=== PATIENT | female | born 1970 | race Caucasian/White ===

== ENCOUNTER → 2018-07-22 | Outpatient (CLI) | payer OTHER ==
[~2018-07-22] MED LIST: ESTRADIOL PO; ESTRADIOL1 MG PO
--- NOTE | 2018-07-22 12:33 | Diagnostic Imaging Report ---
TECHNIQUE: Magnetic resonance imaging of the LEFT HAND was performed WITHOUT injected contrast. HISTORY: Pain COMPARISON: None. FINDINGS: Soft tissue mass located within the dorsal soft tissues of the index finger at the level of the proximal phalanx mid aspect to the base of the middle phalanx. This measures 1.6 cm in craniocaudal dimension and approximately 2 cm maximum axial dimension. The mass is isointense to muscle on T1 and mildly hyperintense to muscle on fluid sensitive sequence. The mass is associated with the extensor tendons finger. The central tendon appears to insert on the middle phalanx with the lateral slips forming a terminal tendon onto the distal phalanx. The flexor tendons are intact. The annular pulleys are intact. 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 Signed by: Dr. Ulices Amos M.D. on 07/22/2018 12:29 PM
== END ==
LOC: MRI 10:51
PROVIDERS: ATTEND Plastic Surgery
DX: R22.32 Localized swelling, mass and lump, left upper limb (principal)

== ENCOUNTER → 2018-09-16 | Day surgery (SDC) | payer OTHER ==
[~2018-09-16] MED LIST changes: +BUPIVACAINE HCL 0.5% INJ 30 ML VIAL INJ ONE; +CEFAZOLIN SOD 1 GM/D5W 50ML 50 ML IV ONE; +DEXAMETHASONE SOD PHOS INJ 4 MG/ML VIAL ONE; +FENTANYL CITRATE/PF 100MCG/2 ML INJ ONE; +KETOROLAC TROMETHAMINE 30 MG/ML VIAL ONE; +LIDOCAINE HCL 2% LOCAL INJ 5 ML SDV VIAL INJ ONE; +MIDAZOLAM HCL 2 MG/2 ML VIAL ONE; +MUPIROCIN 2% OINT 22 GM TUBE ONE; +ONDANSETRON HCL INJ 2 MG/ML VIAL ONE; +PROPOFOL IV EMULSION 10 MG/ML 20 ML VIAL ONE; +SEVOFLURANE INHAL SOLN 250 ML PEN BTL ONE
--- OUTSIDE RECORDS SUMMARY | 2018-09-16 06:10 | XMS REPORT ---
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 Allergies, Adverse Reactions, Alerts Allergy Name Allergy Type Status Severity Reaction(s) Onset Date Inactive Date Treating Clinician Comments No Known Allergies DA Active U 2015-08-30 00:00:00 Medications This patient has no known medications. Results Test Description Test Time Test Comments Text Results Atomic Results Result Comments MRI HAND LEFT WO 2018-07-22 12:26:00 [place] [address] Patient Name: JACQUE BEATTY MR #: [id number] : 1970 Age/Sex: 47/F Req #: [id number] Adm Physician: Ordered by: BRYANNA NUNEZ MD Report #: [id number] Location: MRI Room/Bed: Procedure: [id number] MRI/MRI HAND LEFT WO Exam Date: Exam Time: REPORT STATUS: Signed TECHNIQUE: Magnetic resonance imaging of the LEFT HAND was performed WITHOUT injected contrast. HISTORY: Pain COMPARISON: None. FINDINGS: Soft tissue mass located within the dorsal soft tissues of the index finger at the level of the proximal phalanx mid aspect to the base of the middle phalanx. This measures 1.6 cm in craniocaudal dimension and approximately 2 cm maximum axial dimension. The mass is isointense to muscle on T1 and mildly hyperintense to muscle on fluid sensitive sequence. The mass is associated with the extensor tendons finger. The central tendon appears to insert on the middle phalanx with the lateral slips forming a terminal tendon onto the distal phalanx. The flexor tendons are intact. The annular pulleys are intact. 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 Signed by: Dr. Nikhil Pritchard M.D. on 07/22/2018 12:29 PM Dictated By: NIKHIL PRITCHARD MD 28 Transcribed By: ROLLY on 07/22/181228 COPY TO: BRYANNA UNNEZ MD
--- OUTSIDE RECORDS SUMMARY | 2018-09-16 06:10 | XMS REPORT | Clinical Summary ---
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 in packet Active Lactobacillus rhamnosus Take 1 0 GG (CULTURELLE) 10 capsule by billion cell capsule mouth daily. Active cyanocobalamin (VITAMIN Take 500 mcg 0 B-12) 500 MCG tablet by mouth daily. Active gabapentin (NEURONTIN) Take 3 90 capsule 1 100 mg capsules (300 8 capsuleIndications: mg total) by Burning sensation mouth every evening. Active Problems No known active problems Encounters Care Team Description Date Type Specialty Kate Reyes MD 07/16/2018 Telephone Neurology Kate Reyes MD Lyme disease (Primary Dx) 07/09/2018 Orders Only Neurology Kate Reyes MD 07/07/2018 Telephone Neurology Kate Reyes MD 06/26/2018 Lab Lab Kate Reyes MD 06/26/2018 Lab Lab Kate Reyes MD Burning sensation (Primary Dx); Brain stem lesion 06/26/2018 Office Visit Neurology after 09/15/2017 Family History Medical History Relation Name Comments Diabetes Maternal Uncle Relation Name Status Comments Maternal Uncle Alive Social History Date Tobacco Use Types Packs/Day Years Used Quit: 1991 Former Smoker Cigarettes Smokeless Tobacco: Never Used Alcohol Use Drinks/Week oz/Week Comments Yes 1 Glasses of 0.6 occasionally once a month wine Sex Assigned at Date Recorded Not on file Industry Job Start Date Occupation Not on file Not on file Not on file Travel End Travel History Travel Start No recent travel history available. Last Filed Vital Signs Time Taken Vital Sign Reading 06/26/2018 1:10 PM CDT Blood Pressure 106/64 06/26/2018 1:10 PM CDT Pulse 65 - Temperature - - Respiratory Rate - - Oxygen Saturation - - Inhaled Oxygen - Concentration 07/10/2018 11:01 AM CDT Weight 52.2 kg (115 lb) 07/10/2018 11:01 AM CDT Height 147.3 cm (4' 10") 07/10/2018 11:01 AM CDT Body Mass Index 24.04 Plan of Treatment Health Maintenance Due Date Last Done Comments CERVICAL CANCER SCREENING 1991 INFLUENZA VACCINE 04/30/2018 Procedures Comments Procedure Name Priority Date/Time Associated Diagnosis MRI BRAIN W WO CONTRAST Routine 07/10/2018 Burning sensation 11:41 AM CDT Brain stem lesion PARANEOPLASTIC ANTIBODY, Routine 06/26/2018 WESTERN BLOT 1:54 PM CDT LYME, WESTERN BLOT, SERUM Routine 06/26/2018 1:54 PM CDT HEAVY METALS PANEL, BLOOD Routine 06/26/2018 Burning sensation 1:54 PM CDT Brain stem lesion MYELOPEROXIDASE ANTIBODY Routine 06/26/2018 Burning sensation (MPO) 1:54 PM CDT Brain stem lesion HEPATITIS ACUTE PANEL Routine 06/26/2018 Burning sensation 1:54 PM CDT Brain stem lesion PARANEOPLASTIC ANTIBODY Routine 06/26/2018 Burning sensation EVALUATION W/REFLEX TO 1:54 PM CDT Brain stem lesion TITER AND WESTERN BLOTC LYME DISEASE AB TOTAL AND Routine 06/26/2018 Burning sensation IGM W/RFL WESTERN BLOT ON 1:54 PM CDT Brain stem lesion POSITIVE SSA/SSB ANTIBODY Routine 06/26/2018 Burning sensation 1:54 PM CDT Brain stem lesion COPPER LEVEL, SERUM Routine 06/26/2018 Burning sensation 1:54 PM CDT Brain stem lesion after 09/15/2017 Results * MRI Brain W Wo Contrast (07/10/2018 11:41 AM CDT) Narrative Performed At EXAMINATION:MRI BRAIN W WO CONTRAST HM [facility] CLINICAL HISTORY:R20.8 Other disturbances of skin sensation, G93.9 Disorder of brainunspecified, headachesMSseizures COMPARISON: None FINDINGS: Pre and postcontrast MRI of the brain is interpreted. Diffusion imaging demonstrates no abnormal restricted diffusion. A couple of nonspecific foci of subcortical T2 FLAIR hyperintensity are noted within the cerebrum and likely reflect trace chronic small vessel ischemic change which can be seen with migraine headaches among other etiologies. Demyelination or an infectious/inflammatory process are felt to be less likely considerations. No extra-axial collection or mass effect is seen. No hemorrhage is identified. The major vascular flow-voids are preserved. No abnormal parenchymal or leptomeningeal enhancement is seen. IMPRESSION: No significant abnormality specifically demonstrated. A couple of small T2 FLAIR hyperintense foci in the cerebral white matter likely reflect minimal chronic small vessel ischemic change. [id number] Procedure Note Interface, Radiology Results Incoming - 07/10/2018 12:10 PM CDT EXAMINATION: MRI BRAIN W WO CONTRAST CLINICAL HISTORY: R20.8 Other disturbances of skin sensation, G93.9 Disorder of brain unspecified, headaches MS seizures COMPARISON: None FINDINGS: Pre and postcontrast MRI of the brain is interpreted. Diffusion imaging demonstrates no abnormal restricted diffusion. A couple of nonspecific foci of subcortical T2 FLAIR hyperintensity are noted within the cerebrum and likely reflect trace chronic small vessel ischemic change which can be seen with migraine headaches among other etiologies. Demyelination or an infectious/inflammatory process are felt to be less likely considerations. No extra-axial collection or mass effect is seen. No hemorrhage is identified. The major vascular flow-voids are preserved. No abnormal parenchymal or leptomeningeal enhancement is seen. IMPRESSION: No significant abnormality specifically demonstrated. A couple of small T2 FLAIR hyperintense foci in the cerebral white matter likely reflect minimal chronic small vessel ischemic change. [id number] Performing Organization Address City/State/Zipcode Phone Number [facility] [address] [place] [address] * Lyme, Western Blot, Serum (06/26/2018 1:54 PM CDT) Lyme 93 kD IgG Absent [facility] 03 Lyme 66 kD IgG Absent [facility] 03 Lyme 58 kD IgG Absent [facility] 03 Lyme 45 kD IgG Absent [facility] 03 Lyme 41 kD IgG Absent [facility] 03 Lyme 39 kD IgG Absent [facility] 03 Lyme 30 kD IgG Absent [facility] 03 Lyme 28 kD IgG Absent [facility] 03 Lyme 23 kD IgG Absent [facility] 03 Lyme 18 kD IgG Absent [facility] 03 Lyme IgG WB interp. Negative [facility] 03 Comment: Positive: 5 of the following Borrelia-specific bands: 18,23,28,30,39,41,45,58, 66, and 93. Negative: No bands or banding patterns which do not meet positive criteria. Lyme 41 kD IgM Absent [facility] 03 Lyme 39 kD IgM Absent [facility] 03 Lyme 23 kD IgM Absent [facility] 03 Lyme IgM WB interp. Negative [facility] 03 Comment: Note: An equivocal or positive EIA result followed by a negative Western Blot result is considered NEGATIVE. An equivocal or positive EIA result followed by a positive Western Blot is considered POSITIVE by the CDC. Positive: 2 of the following bands: 23,39 or 41 Negative: No bands or banding patterns which do not meet positive criteria. Criteria for positivity are those recommended by CDC/ASTPHLD. p23=Osp C, p25=hgswsmxol Note: Sera from individuals with the following may cross react in the Lyme Western Blot assays: other spirochetal diseases (periodontal disease, leptospirosis, relapsing fever, yaws, and pinta); connective autoimmune (Rheumatoid Arthritis and Systemic Lupus Erythematosus and also individuals with Antinuclear Antibody); other infections ([place] Spotted Fever; Trish-Calixto Virus, and Cytomegalovirus). Narrative Performed At Performed at:[facility] [address] [place], [id number] Theoretical Physicist: Tano Geller MD, Phone:[phone] Performing Organization Address City/State/Zipcode Phone Number [facility] 03 * Paraneoplastic antibody, western blot (06/26/2018 1:54 PM CDT) ANNA1 (Hu) Ab, WB <11 <11 SI [facility] ANNA2 (Ri) Ab, WB <11 <11 SI [facility] PCA1 (Yo) Ab, WB <11 <11 SI [facility] CRMP5/CV2 Ab, WB <11 <11 SI [facility] Amphiphysin Ab, WB <11 <11 SI [facility] GAD65 Ab, WB <11 <11 SI [facility] Comment: [facility] This test was developed and [facility] its analytical performance characteristics have been determined by [facility]. It has not been cleared or approved by FDA. This assay has been validated pursuant to the CLIA regulations and is used for clinical purposes. Resulting Agency Comment Performing Organization Information: Site ID: [id number] Name: [facility], Address: [address] [place] [id number] Director: Sushila Ojeda MD,PhD,JACKIE Performing Organization Address City/[facility] Phone Number [facility]ORENC[facility] LEON/BREANNA [address] [place] [address], [place] [phone] [facility] [id number] * Lyme disease ab total and igm w/rfl western blot on positive (06/26/2018 1:54 PM CDT) Lyme Ab <0.91 0.00 - 0.90 ISR [facility] 02 Comment: Negative <0.91 Equivocal0.91 - 1.09 Positive >1.09 Lyme Disease Ab, Quant, 1.31 (H) 0.00 - 0.79 index [facility] 02 IgM Comment: Negative <0.80 Equivocal0.80 - 1.19 Positive >1.19 IgM levels may peak at 3-6 weeks post infection, then gradually decline. Narrative Performed At Performed at:02 [facility] [address] [facility] [address], [place], [id number] Theoretical Physicist: STACY Rose MD, Phone:[phone] Performing Organization Address [facility] Phone Number [facility] 02 * Heavy Metals Panel, Blood (06/26/2018 1:54 PM CDT) Arsenic 3 <23 mcg/L [facility] Comment: [facility] PEACE Whole Blood Arsenic Level> 100 mcg/L is indicative of acute/chronic exposure. Urine is usually the best specimen for the analysis of arsenic in body fluids. Blood levels tend to be low even when urine concentrations are high. Mercury, blood 4 <11 mcg/L [facility] PEACE Lead, blood <1 <5 mcg/dL [facility] Comment: [facility] PEACE Lead: to 6 years: < 5mcg/dL > 6 years: < 5mcg/dL Blood lead levels in the range of 5-9 mcg/dL have been associated with adverse health effects in children aged 6 years and younger. Patient management varies by age and CDC Blood Lead Level range. Refer to the CDC website regarding Lead Publication/ Case Management for recommended interventions. Lead(B) collection sample [facility] [employer] [facility] Specimen Blood Resulting Agency Comment Performing Organization Information: Site ID: [id number] Name: [facility] Address: [address] [place] [address] Director: Mack Garcia M.D., Ph.D Performing Organization Address City/State/Zipcode Phone Number [facility] [address] [place] [address] [place] * Paraneoplastic Antibody Evaluation w/Reflex to Titer and Western Blot,Basic (06/26/2018 1:54 PM CDT) Tissue IFA observation(s) SEE NOTE [facility] Comment: [facility] Fluorescence observed on [facility] monkey cerebellum substrate. A known pattern associated with specific analytes in this panel was not observed. Testing suggests presence of autoantibodies not included in this panel. Staining of HEp2 cells suggests nuclear non-neuronal specific antibodies are present. Consider testing for myelin antibody if clinically indicated. Anti-neuronal nuclear Ab, NEGATIVE NEGATIVE [facility] type 1 [facility] S[facility] Anti-neuronal nuclear Ab, NEGATIVE NEGATIVE [facility] type 2 [facility] Anti-neuronal nuclear Ab, NEGATIVE NEGATIVE [facility] type 3 [facility] PCA1 (Yo) Ab, IFA NEGATIVE NEGATIVE [facility] PCA2 Ab, IFA NEGATIVE NEGATIVE [facility] SJ SQUEAK [employer]AK [employer]PAIRER Tr (DNER) Ab, IFA NEGATIVE NEGATIVE [facility] AGNA/SOX1 Ab, IFA NEGATIVE NEGATIVE [facility] Amphiphysin Ab NEGATIVE NEGATIVE [facility] CRMP5/CV2 Ab, IFA NEGATIVE NEGATIVE [facility] Comment: [facility] If specific neuronal [facility] autoantibodies were not detected, it does not exclude an idiopathic or paraneoplastic autoimmune neurological disease. If clinical concerns remain, consider testing for individual autoantibodies or with other autoimmune neurological disease panels offered by [facility]. For further information refer to the [employer] for [employer] autoimmune neurology testing website (https://www.[employer]. com/testcenter/testguide.actio n?dc=CF Paraneoplastic Syndromes). This test was developed and its analytical performance characteristics have been determined by [facility]. It has not been cleared or approved by FDA. This assay has been validated pursuant to the CLIA regulations and is used for clinical purposes. Striated muscle Ab, IgG NEGATIVE NEGATIVE [facility] screen Comment: [employer] This test was developed and [facility] its analytical performance characteristics have been determined by [facility] [employer] [facility]. It has not been cleared or approved by FDA. This assay has been validated pursuant to the CLIA regulations and is used for clinical purposes. Voltage-gated calcium <30 <30 pmol/L [facility] channel (VGCC) Ab DIAGNOSTICS/Eloquii [facility] Voltage-gated potassium <80 <80 pmol/L [facility] channel (VGKC) Ab Comment: [employer] This test was developed and [facility] its analytical performance characteristics have been determined by [employer] [facility]. It has not been cleared or approved by FDA. This assay has been validated pursuant to the CLIA regulations and is used for clinical purposes. Acetylcholine receptor <53 <53 pmol/L [facility] ganglionic (alpha 3) Ab Comment: [employer] This test was developed and [facility] its analytical performance characteristics have been determined by [employer] [facility]. It has not been cleared or approved by FDA. This assay has been validated pursuant to the CLIA regulations and is used for clinical purposes. Voltage gated calcium <54 <54 pmol/L [facility] channel (VGCC) type N Ab Comment: [employer] This test was developed and [facility] its analytical performance characteristics have been determined by [employer] [facility]. It has not been cleared or approved by FDA. This assay has been validated pursuant to the CLIA regulations and is used for clinical purposes. Acetylcholine receptor <0.30 nmol/L [facility] binding Ab Comment: [employer] Reference Ranges for [facility] Acetylcholine Receptor Binding Antibody: Negative: < or=0.30 nmol/L Equivocal:0.31-0.49 nmol/L Positive: > or=0.50 nmol/L Specimen Blood Resulting Agency Comment Performing Organization Information: Site ID: [id number] Name: [employer] [facility], Address: [address] [place] [id number] Director: Sushila Ojeda MD,PhD,JACKIE Performing Organization Address City/[facility]/Zipcode Phone Number [facility] [address] [place], [place] [phone] [facility] [id number] * Myeloperoxidase Antibody (MPO) (06/26/2018 1:54 PM CDT) Myeloperoxidase Ab <9.0 0.0 - 9.0 U/mL [facility] 03 Specimen Blood Narrative Performed At Performed at:03 - [facility] [place], [id number] Theoretical Physicist: Tano Geller MD, Phone:[phone] Performing Organization Address [facility] Phone Number [facility] 03 * SSA/SSB antibody (06/26/2018 1:54 PM CDT) Sjogren's SS-A antibody <0.2 0.0 - 0.9 AI [facility] Sjogren's SS-B antibody 0.2 0.0 - 0.9 AI [facility] Specimen Blood Narrative Performed At Performed at:01 - [id number] Theoretical Physicist: Tunde Valles MD, Phone:[phone] Performing Organization Address [facility] Phone Number [facility] * Copper level, serum (06/26/2018 1:54 PM CDT) Copper 118Comment: 72 - 166 ug/dL [facility] 03 Detection Limit=5 Specimen Blood Narrative Performed At Performed at:03 - [facility] [address] [place], [id number] Theoretical Physicist: Tano Geller MD, Phone:[phone] Performing Organization Address [facility] Phone Number [facility] 03 * Hepatitis acute panel (06/26/2018 1:54 PM CDT) Hepatitis A IgM Negative Negative [facility] Hepatitis B surface Ag Negative Negative [facility] Hepatitis B core IgM Negative Negative [facility] Hepatitis C Ab <0.1 0.0 - 0.9 s/co ratio [facility] Comment: Negative: < 0.8 Indeterminate: 0.8 - 0.9 Positive: > 0.9 The CDC recommends that a positive HCV antibody result be followed up with a HCV Nucleic Acid Amplification test ([id number]). Specimen Blood Narrative Performed At Performed at: - [facility] [address] [place], [id number] Theoretical Physicist: Tunde Valles MD, Phone:[phone] Performing Organization Address City/State/Zipcode Phone Number [facility] after 09/15/2017 Insurance Payer Benefit Subscriber ID Type Phone Address Plan / Group [facility] xxxxxxxxx HMO/PPO THCARE CHOICE/CHO ICE + Advance Directives Patient has advance care planning documents on file. For more information, ansley ybarra contact: Gene Aldrich [address] [place] [address]
[2018-09-16 09:20] VITALS: BP 104/56
--- NOTE | 2018-09-16 09:42 | Operative Report ---
DATE OF PROCEDURE: September 16, 2018 PREOPERATIVE DIAGNOSIS: Recurrent giant cell tumor, left index finger. POSTOPERATIVE DIAGNOSIS: Recurrent giant cell tumor, left index finger, pending final pathology. PROCEDURE: Radical excision of soft tissue tumor, left index finger. ANESTHESIA: General. TOURNIQUET TIME: 75 minutes. HISTORY: The patient is a 47-year-old right-hand dominant female, who states that approximately 1-1/2 to 2 years ago she underwent excision of a lesion, which she was told was a giant cell tumor from the left index finger at [facility]. The surgeon had made an incision along the ulnar aspect of the proximal phalanx. She states that within several months after the surgery the mass recurred, and has been growing since. MRI preoperatively shows extensive giant cell tumor involving the subtendinous periosteal area of the proximal phalanx, as well as the PIP joint. The risks, benefits and alternatives of treatment were discussed with the patient and she is prepared to undergo the procedures outlined. DETAILS OF PROCEDURE: Patient was marked preoperatively in the holding area. She was brought to the operating theater, and after the induction of adequate general anesthesia she was prepped and draped in a supine position. A time out was performed. A curvilinear incision was marked out along the dorsal aspect of the index finger from the MP to the middle phalanx. The left upper extremity was elevated for 3 minutes, and then a tourniquet was inflated to a pressure of 250 mmHg. The incision was made proximally through the skin and subcutaneous tissues. Venous tributaries were controlled with bipolar cautery. The skin flaps were then elevated off the extensor tendon mechanism from the MP joint to the middle phalanx. There was obvious giant cell tumor emanating from the region of the PIP joint coming through the tendinous substance. In order to adequately address this extensor tendon mechanism, it was split sagittally from the MPJ to the level of the central slip. The tumor was immediately identified in the subtendinous space and was excised off of the periosteum of the proximal phalanx from proximal to distal. At the level of the PIP joint, 2 separate extensions, 1 radial and 1 ulnar were identified. On the outside of the PIP joint, the tumor was carefully dissected off the extensor tendon mechanism, and then from underneath the extensor tendon mechanism the extensions radial and ulnarward were able to be pulled back. The dissection then continued to the level of the PIP joint to the proximal portion of the central slip. The tumor was then removed in its entirety. Care was taken to ensure that the collateral ligaments remained intact. The proximal edge of the central slip required shaving to remove the presence of tumor there. The entire undersurface of the extensor tendon mechanism was inspected, and small amounts of tumor were removed from there as well. The area of the proximal phalanx was examined carefully, and all remnants of the tumor wer3e sharply removed. At the completion of the procedure, no visible tumor remained. The wound was then irrigated copiously with bacteriostatic saline. The dissection continued down through the ligaments on the proximal phalanx. Then the neurovascular bundles were examined and noted to be free of any tumor. At this point, the extensor tendon mechanism was repaired using 4-0 Vicryl suture in an interrupted figure-of-8 fashion from the MP joint to the level of the central slip. The skin was closed with 5-0 nylon interrupted horizontal mattress fashion. Tourniquet was deflated. All the fingers pinked up nicely and the wound was noted to be hemostatic. A Marcaine field block was performed around the base of the index finger. A total of 6 to 7 mL was used. A sterile bulking conforming bandage was applied, and a foam aluminum splint was added on the volar aspect to maintain the PIP joint and DIP joint in full extension. This was held in place with Coban. Patient tolerated the procedure well and is brought to the recovery room in satisfactory condition and discharged with a postoperative instruction sheet, as well as a followup appointment. Job#: [id number] TIFF
== END | disposition home or self-care (01) ==
LOC: OR 06:07
PROVIDERS: ATTEND Plastic Surgery
DX: D48.1 Neoplasm of uncertain behavior of connective and other soft tissue (principal); K21.9 Gastro-esophageal reflux disease without esophagitis
CPT/HCPCS: 26117; 88305; J0690; J1100; J1885; J2001; J2250; J2405; J2704; 88304

== ENCOUNTER → 2021-07-04 | Day surgery (SDC) | payer OTHER ==
[~2021-07-04] MED LIST changes: +ACETAMINOPHEN-1 EAC3 PO; -CEFAZOLIN SOD 1 GM/D5W 50ML 50 ML IV ONE; -DEXAMETHASONE SOD PHOS INJ 4 MG/ML VIAL ONE; -FENTANYL CITRATE/PF 100MCG/2 ML INJ ONE; -KETOROLAC TROMETHAMINE 30 MG/ML VIAL ONE; -LIDOCAINE HCL 2% LOCAL INJ 5 ML SDV VIAL INJ ONE; -MIDAZOLAM HCL 2 MG/2 ML VIAL ONE; -ONDANSETRON HCL INJ 2 MG/ML VIAL ONE; -PROPOFOL IV EMULSION 10 MG/ML 20 ML VIAL ONE; -SEVOFLURANE INHAL SOLN 250 ML PEN BTL ONE
[2021-07-04 08:20] VITALS: BP 117/65
== END | disposition home or self-care (01) ==
LOC: OR 05:29 → EDSTATUS 07:00
PROVIDERS: ATTEND Plastic Surgery
DX: M65.312 Trigger thumb, left thumb (principal); D64.9 Anemia, unspecified; K21.9 Gastro-esophageal reflux disease without esophagitis; Z01.810 Encounter for preprocedural cardiovascular examination; Z01.812 Encounter for preprocedural laboratory examination; Z20.822 Contact with and (suspected) exposure to COVID-19
CPT/HCPCS: 26055; 93005; J0690; U0002